=== PATIENT | male | born 1970 | race Caucasian/White ===

== ENCOUNTER 2018-08-21 04:54 | Inpatient (IN) ==
--- NOTE | 2018-08-10 10:45 | Anesthesiology Consultation ---
Date of Service August 10, 2018 Assessment & Plan (1) Encounter for pre-operative examination: Plan: - History of glidescope intubation= Left shoulder arthroscopy = 07/25/14= Grade view 1, Glidescope #4, ETT 8.0 at [facility]. Chart Review Chart Review: Acceptable Risk for Surgery (PENDING EVALUATION OF CLINICAL/ CARDIAC STATUS AM DOS) and Patient NOT seen in Pre Admission Testing History Surgery Operation Date: 08/21/18 12:40 Proposed Procedures p Right Ankle Achilles Tendon Debridement, - Maverick Davies DO s Calcaneal Exostectomy, Excision Skylar's Deformity - Lateral Approach - Maverick Davies DO Height/Weight Height: 6 ft 5 in Weight: 204.117 kg Allergies Allergy/AdvReac Type Severity Reaction Status Date / Time Penicillins Allergy Severe ANAPHYLAXIS Verified 07/20/18 16:13 Sulfa (Sulfonamide Allergy Intermediate SWELLING Verified 07/20/18 16:13 Antibiotics) Medications Home Medications Medication Instructions Recorded Confirmed Last Taken Hydrochlorothiazide 1 tab PO QAM 07/20/18 07/20/18 Unknown bupropion HCl 300 mg PO QAM 07/20/18 07/20/18 Unknown gabapentin 300 mg PO BID 07/20/18 07/20/18 Unknown vjouxqigbbt-zwv-duhfkdufn-vitC 3 tab PO BID 07/20/18 07/20/18 Unknown [Glucosamine Complex-MSM] loratadine 10 mg PO QAM 07/20/18 07/20/18 Unknown meloxicam 15 mg PO QAM 07/20/18 07/20/18 Unknown omeprazole 20 mg PO QAM 07/20/18 07/20/18 Unknown oxybutynin chloride 10 mg PO QAM 07/20/18 07/20/18 Unknown Past Medical History Medical History History of difficult intubation Left shoulder arthroscopy = 07/25/14= Grade view 1, Glidescope #4, ETT 8.0 at [facility] Morbid obesity Anxiety GERD (gastroesophageal reflux disease) Hypertension Osteoarthritis Sleep apnea NO DEVICE "CANNOT TOLERATE CPAP" Past Family History Family History Sister Family history of diabetes mellitus Past Surgical History Surgical History History of herniorrhaphy UMBILICAL History of repair of rotator cuff LEFT X3 History of tonsillectomy History of tooth extraction WISDOM TEETH Past Anesthesia History Difficult Airway (Left shoulder arthroscopy = 07/25/14= Grade view 1, Glidescope #4, ETT 8.0 at [facility]) Social History Smoking Status: Former smoker tobacco type: cigarettes Do You Dip or Chew Tobacco: No Smoking End Date: QUIT 2016 Hx Alcohol Use: Yes (RARELY) Alcohol type: beer alcohol intake frequency: other Hx Substance Use: No Testing Electrocardiogram Date: 08/07/18 NSR at 79bpm. Possible septal infarct. TWI in lead III (NS TWA in AVF)-- prior EKG included in chart for comparison; will evaluate cardiac status AM DOS. Chest X-Ray Date: 08/07/18 Findings: + NAD Old distal right clavicular deformity. 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 Laboratory Results 08/07/18 WBC 10.49 H/H 15.3/45.9 PLATELETS 261 PT 10.1 PTT 27.8 INR 1.0 UA negative bacteria
--- NOTE | 2018-08-20 18:11 | History & Physical Report ---
Date of Service August 20, 2018 Assessment & Plan (1) Right Achilles tendinitis: Schedule a right achilles debridement through a lateral approach, Skylar' s resection, calcaneal exostectomy. All potential risks, benefits, complications, alternatives, and rehab have been discussed with the patient and he wishes to proceed. He will be scheduled for 08.21.18. (2) Skylar's deformity of right heel: (3) Exostosis of right posterior calcaneus: History of Present Illness Chief Complaint: right ankle/achilles pain Primary Care Provider: Xavier Pereira MD This is a patient with chronic right achilles tendon pain for multiple months. He had been treated conservatively but failed all conservative management. He is now being set up for surgical management. Allergies Allergy/AdvReac Type Severity Reaction Status Date / Time Penicillins Allergy Severe ANAPHYLAXIS Verified 07/20/18 16:13 Sulfa (Sulfonamide Allergy Intermediate SWELLING Verified 07/20/18 16:13 Antibiotics) Home Medications Home Medications Medication Instructions Recorded Confirmed Type Hydrochlorothiazide 1 tab PO QAM 07/20/18 07/20/18 History bupropion HCl 300 mg PO QAM 07/20/18 07/20/18 History gabapentin 300 mg PO BID 07/20/18 07/20/18 History rwprvskcmxw-vjk-edepzfepa-vitC 3 tab PO BID 07/20/18 07/20/18 History [Glucosamine Complex-MSM] loratadine 10 mg PO QAM 07/20/18 07/20/18 History meloxicam 15 mg PO QAM 07/20/18 07/20/18 History omeprazole 20 mg PO QAM 07/20/18 07/20/18 History oxybutynin chloride 10 mg PO QAM 07/20/18 07/20/18 History Past Med/Surg History Medical History History of difficult intubation Left shoulder arthroscopy = 07/25/14= Grade view 1, Glidescope #4, ETT 8.0 at [facility] Anxiety GERD (gastroesophageal reflux disease) Hypertension Morbid obesity Osteoarthritis Sleep apnea NO DEVICE "CANNOT TOLERATE CPAP" Surgical History History of herniorrhaphy UMBILICAL History of repair of rotator cuff LEFT X3 History of tonsillectomy History of tooth extraction WISDOM TEETH Family History Sister Family history of diabetes mellitus Social History Current Living Situation: Alone Feels Safe at Home: Yes Smoking Status: Former smoker Tobacco Type: cigarettes Second Hand Exposure: No Hx Alcohol Use: Yes (RARELY) Alcohol type: beer Alcohol Intake Frequency: other Hx Substance Use: No Beliefs That Will Affect Care: None Preferred Language: Cymraes Communication Ability: Effective Physical Exam 2 Constitutional: well developed and well nourished; no acute distress ENMT: external ear and nose normal, oropharynx normal Neck: trachea midline, no thyromegaly Respiratory: normal respiratory effort, lungs clear to auscultation Cardiovascular: Rate/Rhythm: regular rate and regular rhythm Heart Sounds: normal S1 and normal S2 Gastrointestinal (Abdomen): normal bowel sounds, soft, nontender, no hepatosplenomegaly Musculoskeletal: Ankle: no deformity, no skin erythema and no ecchymosis Right ankle: Swelling at the posterior aspect of the achilles. Tender at the lateral aspect of the achilles insertion and the achilles. Painful PROM. Skin: no rashes, warm and dry Psychiatric: A+Ox3, euthymic affect Lymphatic: no cervical or axillary lymphadenopathy
[2018-08-21] MEDS ORDERED: LR 15ML/HR IV SCH (06:00)
[2018-08-21] MEDS ORDERED: ROPIVACAINE 0.5% 5 MG/ML 30 ML VIAL ONE (06:23)
[2018-08-21] MEDS ORDERED: BUPIVACAINE 0.25% 30 ML VIAL ONE (06:23)
[2018-08-21] MEDS ORDERED: ePHEDrine sulfate 50 MG/ML AMP IV PRN (06:36)
[2018-08-21] MEDS ORDERED: ONDANSETRON INJ 2 MG/ML 2 ML VIAL IV PRN ×2 (06:36→10:47)
[2018-08-21] MEDS ORDERED: PHENYLEPHRINE 100MCG/ML 5ML SYR IV PRN (06:36)
[2018-08-21] MEDS ORDERED: fentaNYL citrate 100 MCG/2 ML VIAL IV PRN (06:36)
[2018-08-21] MEDS ORDERED: HYDROmorphone INJ 1 MG/ML SYRINGE IV PRN (06:36)
[2018-08-21] MEDS ORDERED: ATROPINE SULFATE 0.1 MG/ML 5ML SYR IV PRN (06:36)
[2018-08-21] MEDS ORDERED: PROMETHAZINE HCL 12.5 MG in SODIUM CHLORIDE 0.9% 50 ML IV PRN (06:36)
[2018-08-21] MEDS ORDERED: LIDOCAINE HCL 2% 2 ML VIAL/AMP(20MG/ML) INFIL ONE (06:42)
[2018-08-21] MEDS ORDERED: PROPOFOL IV EMULSION 10 MG/ML 20 ML VIAL IV ONE ×2 (06:42→10:06)
[2018-08-21] MEDS ORDERED: fentaNYL citrate 100 MCG/2 ML VIAL ONE (06:42)
[2018-08-21] MEDS ORDERED: MIDAZOLAM HCL 1 MG/ML 2ML VIAL ONE ×2 (06:42→10:06)
[2018-08-21] MEDS ORDERED: ONDANSETRON INJ 2 MG/ML 2 ML VIAL ONE (06:42)
[2018-08-21] MEDS ORDERED: DEXAMETHASONE SOD INJ 4 MG/ML VIAL ONE (06:42)
[2018-08-21] MEDS ORDERED: BUPIVACAINE 0.5 % 5 MG/1 ML MPF 30ML VIAL ONE (06:59)
[2018-08-21] MEDS ORDERED: BACITRACIN INJ 50,000 UNIT VIAL ONE (06:59)
--- NOTE | 2018-08-21 07:48 | History & Physical Bridge Note ---
Date of Service August 21, 2018 History & Physical Bridge Note I have examined the patient, reviewed the History & Physical and in the interval since the performance of the History & Physical I have noted the following changes of clinical significance: no changes noted
[2018-08-21] MEDS ORDERED: CLINDAMYCIN 900 MG in DEXTROSE 5% 100 ML IV ONE (07:50)
--- NOTE | 2018-08-21 10:25 | Post Operative Brief Note ---
Immediate Post Op Note v1 Date of Surgery August 21, 2018 Pre & Post Diagnosis Operation Date: 08/21/18 07:30 Pre-Op Diagnosis: Right Ankle Achilles partial tear, Skylar's Deformity, Achilles tendonosis, calcaneal extostosis Post-Op Diagnosis: Right Ankle Achilles partial tear, Skylar's Deformity, Achilles tendonosis, calcaneal extostosis Procedure Operation Date: 08/21/18 07:30 Actual Procedures p Right Ankle Achilles Tendon Debridement and repair with 4.5mm Healicoil anchors x2 and 4.5mm Footprint anchors x2 (Right) - DO capri Ivan Calcaneal Exostectomy, Excision Skylar's Deformity - Lateral Approach(Right) - Maverick Davies DO Surgeon Maverick Davies DO Drier Operator Rik Johnson PA-C Estimated Blood Loss 2 Findings Consistent with Post-Op Diagnosis Specimens Right Skylar's deformity, Achilles tendon insertion Anesthesia Type General Regional Complications none Disposition Accompanied Patient To Recovery: No Disposition: Recovery Room
[2018-08-21] MEDS ORDERED: ZOLPIDEM TARTRATE 5 MG TAB PO PRN (10:42)
[2018-08-21] MEDS ORDERED: MAGNESIUM HYDROXIDE SUSP 30 ML UDC PO PRN (10:47)
[2018-08-21] MEDS ORDERED: BISACODYL 10 MG SUPP PR PRN (10:47)
[2018-08-21] MEDS ORDERED: ALUMINUM/MAGNESIUM SUSP 30 ML UDC PO PRN (10:47)
[2018-08-21] MEDS ORDERED: SOD PHOSPHATE/SOD BIPHOSPHATE ENEMA 132 ML BTL PR PRN (10:47)
[2018-08-21] MEDS ORDERED: LABETALOL HCL IV 5 MG/ML 20ML IV ONE (11:07)
[2018-08-21] MEDS ORDERED: LABETALOL HCL IV 5 MG/ML 20ML IV PRN ×2 (11:29→11:39)
[2018-08-21] MEDS: MoRPHine SULFATE 2 MG/ML CARP IV PRN (13:17)
--- NOTE | 2018-08-21 13:26 | Anesthesiology Progress Note ---
Date of Service August 21, 2018 Anesthesia Post Procedure Vital Signs Vital Signs: Temp Pulse Pulse Resp BP BP Pulse Ox 08/21/18 13:10 79 20 148/91 H 99 08/21/18 12:38 79 17 148/97 H 93 08/21/18 12:05 36.5 C 67 20 157/98 H 100 08/21/18 11:56 36.8 C 74 16 141/96 H 99 08/21/18 11:55 75 17 98 08/21/18 11:51 73 14 140/105 H 99 08/21/18 11:50 75 19 99 08/21/18 11:46 73 16 158/94 H 100 08/21/18 11:45 78 17 100 08/21/18 11:40 81 13 137/77 99 08/21/18 11:37 79 19 100 08/21/18 11:36 77 10 L 160/96 H 100 08/21/18 11:34 77 14 151/95 H 99 08/21/18 11:31 78 17 129/81 100 08/21/18 11:30 81 18 100 08/21/18 11:27 85 18 97 08/21/18 11:26 81 17 133/101 H 98 08/21/18 11:24 80 21 159/102 H 100 08/21/18 11:21 79 18 159/103 H 100 08/21/18 11:20 84 19 100 08/21/18 11:16 81 14 136/81 100 08/21/18 11:15 78 14 100 08/21/18 11:14 80 20 142/78 H 100 08/21/18 11:11 86 20 189/128 H 100 08/21/18 11:10 83 20 100 08/21/18 11:06 87 20 196/129 H 100 08/21/18 11:05 91 H 17 99 08/21/18 11:03 87 21 178/105 H 99 08/21/18 11:00 89 21 188/108 H 100 08/21/18 10:59 88 17 160/122 H 100 08/21/18 10:56 88 19 149/118 H 100 08/21/18 10:55 85 20 99 08/21/18 10:53 84 21 161/100 H 100 08/21/18 10:50 88 20 195/107 H 100 08/21/18 10:46 88 20 169/114 H 97 08/21/18 10:45 93 H 18 100 08/21/18 10:41 35.8 C L 93 H 93 H 21 178/104 H 178/104 H 97 08/21/18 10:40 20 87 L 08/21/18 05:55 37 C 75 18 136/86 94 Notes Mental Status: alert / awake / arousable Patient Amnestic to Procedure: Yes Nausea / Vomiting: adequately controlled Pain: adequately controlled Airway Patency, RR, SpO2: stable & adequate BP & HR: stable & adequate Hydration State: stable & adequate Anesthetic Complications: no major complications apparent Notes: BP improved after 15mg of IV labetalol. Pt doing well without complaints.
[2018-08-21] MEDS: D5W AND 1/2NSS + 20MEQ KCL 20 MEQ/1,000 ML BAG IV SCH ×2 (14:07→23:12)
[2018-08-21] MEDS: ACETAMINOPHEN 500 MG TAB PO SCH ×2 (14:07→21:47)
[2018-08-21] MEDS: CLINDAMYCIN 900 MG in DEXTROSE 5% 50 ML IV SCH ×2 (15:41→23:12)
[2018-08-21] MEDS: SENNA 8.6 MG TAB PO SCH (20:30)
[2018-08-21] MEDS: GABAPENTIN 300 MG CAP PO SCH (20:30)
[2018-08-21] MEDS: DOCUSATE SODIUM 100 MG CAP PO SCH (20:30)
[2018-08-21] MEDS ORDERED: GLUCOSAMINE MSM MAGNESIUM VITC PO SCH (21:00)
[2018-08-22] MEDS: ACETAMINOPHEN 500 MG TAB PO SCH ×3 (05:30→21:22)
[2018-08-22 06:08] LABS: Basophils # (auto) 0.01 K/uL (0-0.2); Basophils % (auto) 0.1 %; Hematocrit (blood only) 45.4 % (42-52); Hemoglobin 14.4 g/dL (14.0-18.0); Immature Granulocytes # (auto) 0.06 K/uL (0.00-0.02); Immature Granulocytes % (auto) 0.3 %; Lymphocytes # (auto) 2.18 K/uL (1.2-3.4); Lymphocytes % (auto) 11.9 %; Mean Corpuscular Hgb Conc 31.7 g/dL (32-36); Mean Corpuscular Volume 88.3 fL (80-100); Mean Platelet Volume 10.9 fL (7.4-10.4); Monocytes # (auto) 1.79 K/uL (0.11-0.59); Monocytes % (auto) 9.8 %; Neutrophils # (auto) 14.21 K/uL (1.4-6.5); Neutrophils % (auto) 77.9 %; Platelet Count 255 K/uL (130-400); RDW Coefficient of Variation 13.1 % (11.5-14.5); RDW Standard Deviation 42.2 fL (36.4-46.3); Red Blood Count 5.14 M/uL (4.7-6.1); White Blood Count 18.25 K/uL (4.8-10.8)
[2018-08-22] MEDS: DOCUSATE SODIUM 100 MG CAP PO SCH ×2 (07:56→20:13)
[2018-08-22] MEDS: hydroCHLOROthiazide 25 MG TAB PO SCH (07:57)
[2018-08-22] MEDS: GABAPENTIN 300 MG CAP PO SCH ×2 (07:57→20:14)
[2018-08-22] MEDS: LORATADINE 10 MG TAB PO SCH (07:57)
[2018-08-22] MEDS: OXYBUTYNIN CHLORIDE XL 5 MG TABCR PO SCH (07:57)
[2018-08-22] MEDS: PANTOprazole 40 MG TAB PO SCH (07:57)
[2018-08-22] MEDS: MULTIVITAMIN TAB PO SCH (07:58)
[2018-08-22] MEDS: ASPIRIN 81 MG ECTAB PO SCH ×2 (07:58→20:13)
[2018-08-22] MEDS: BuPROPion XL 300 MG TABCR PO SCH (07:59)
[2018-08-22] MEDS ORDERED: NON-FORMULARY MEDICATION (Hydrochlorothiazide 1 TAB) PO SCH (09:00)
[2018-08-22] MEDS: OXYCODONE HCL IR 5 MG TAB (IMMEDIATE RELEASE) PO PRN ×3 (09:25→19:01)
[2018-08-22] MEDS: D5W AND 1/2NSS + 20MEQ KCL 20 MEQ/1,000 ML BAG IV SCH ×2 (09:25→18:46)
--- NOTE | 2018-08-22 11:10 | Orthopedic Progress Note ---
Date of Service August 22, 2018 Assessment & Plan (1) Right Achilles tendinitis: POD #1 s/p right achilles debridement, Skylar's resection, calcaneal exostectomy. Pain control ASA 81 mg BID x 30 days for DVT prophylaxis. NWB RLE at all times. Patient lives alone so plan for a SNF upon d/c. If approval and accepted today, plan for d/c. Subjective No complaints with the right ankle. Still feels the block is working. Having some sensation in the toes. No pain at the achilles or heel area. No CP, SOB, LH. Physical Exam 2 Vital Signs (Past 24 Hours): Last Vital Signs Temp 36.5 C 08/22/18 07:51 Pulse 69 08/22/18 07:51 Resp 18 08/22/18 07:51 BP 112/77 08/22/18 07:51 Pulse Ox 94 08/22/18 07:51 Constitutional: WD/WN, vitals as above Musculoskeletal: Right ankle: splint in place. Toes are mobile. Sensation intact to light touch. Cap refill < 2 seconds.
[2018-08-22] MEDS: MoRPHine SULFATE 2 MG/ML CARP IV PRN ×2 (19:56→21:51)
[2018-08-22] MEDS: SENNA 8.6 MG TAB PO SCH (20:15)
[2018-08-23] MEDS: OXYCODONE HCL IR 5 MG TAB (IMMEDIATE RELEASE) PO PRN ×3 (02:19→10:28)
[2018-08-23] MEDS: D5W AND 1/2NSS + 20MEQ KCL 20 MEQ/1,000 ML BAG IV SCH (04:48)
[2018-08-23] MEDS: ACETAMINOPHEN 500 MG TAB PO SCH (05:34)
--- NOTE | 2018-08-23 07:49 | Orthopedic Progress Note ---
Date of Service August 23, 2018 Assessment & Plan (1) Right Achilles tendinitis: POD #2 s/p right achilles debridement, Skylar's resection, calcaneal exostectomy. Pain control ASA 81 mg BID x 30 days for DVT prophylaxis. NWB RLE at all times. Patient lives alone so plan for a rehab vs SNF upon d/c. If approval and accepted today, plan for d/c. Subjective States the block has worn off and he is having more pain in his heel. States the entire heel is throbbing. He is keeping it elevated with pillows at the lower leg to avoid any pressure on the heel. Overall, the pain is controlled. Denies CP, SOB, LH. Physical Exam 2 Vital Signs (Past 24 Hours): Last Vital Signs Temp 36.6 C 08/23/18 06:29 Pulse 73 08/23/18 06:29 Resp 18 08/23/18 06:29 BP 102/67 08/23/18 06:29 Pulse Ox 94 08/23/18 06:29 Constitutional: WD/WN, vitals as above well developed and well nourished; no acute distress Resting comfortably sitting in bed. Eating breakfast. ENMT: external ear and nose normal, oropharynx normal Neck: trachea midline, no thyromegaly Respiratory: normal respiratory effort, lungs clear to auscultation Cardiovascular: Rate/Rhythm: regular rate and regular rhythm Heart Sounds: normal S1 and normal S2 Gastrointestinal (Abdomen): normal bowel sounds, soft, nontender, no hepatosplenomegaly Musculoskeletal: Right ankle: splint in place. Toes are mobile. Good sensation in the toes to light touch. Cap refill <2 seconds. Skin: no rashes, warm and dry Psychiatric: A+Ox3, euthymic affect Lymphatic: no cervical or axillary lymphadenopathy
[2018-08-23] MEDS: PANTOprazole 40 MG TAB PO SCH (08:00)
[2018-08-23] MEDS: OXYBUTYNIN CHLORIDE XL 5 MG TABCR PO SCH (08:00)
[2018-08-23] MEDS: GABAPENTIN 300 MG CAP PO SCH (08:00)
[2018-08-23] MEDS: LORATADINE 10 MG TAB PO SCH (08:00)
[2018-08-23] MEDS: MULTIVITAMIN TAB PO SCH (08:00)
[2018-08-23] MEDS: BuPROPion XL 300 MG TABCR PO SCH (08:00)
[2018-08-23] MEDS: ASPIRIN 81 MG ECTAB PO SCH (08:01)
[2018-08-23] MEDS: DOCUSATE SODIUM 100 MG CAP PO SCH (08:01)
[2018-08-23] MEDS: hydroCHLOROthiazide 25 MG TAB PO SCH (08:01)
--- NOTE | 2018-08-24 07:15 | Operative Report ---
DATE OF OPERATION: 08/21/2018 PREOPERATIVE DIAGNOSES: 1. Right Skylar's deformity. 2. Achilles tendon partial tear at its insertion. 3. Calcaneal exostosis posteriorly. 4. Achilles tendonopathy. POSTOPERATIVE DIAGNOSES: 1. Right Skylar's deformity. 2. Achilles tendon partial tear at its insertion. 3. Calcaneal exostosis posteriorly. 4. Achilles tendonopathy. PROCEDURE: 1. Right foot resection, Skylar's deformity. 2. Debridement Achilles tendon insertion with repair using a Serrano and Nephew 4.5 mm Healicoil anchors x2, and 4.5 mm Serrano and Nephew footprint anchors x2. 3. Calcaneal exostectomy posterior inferior calcaneus. SURGEON: Maverick Davies DO CUSTODY OFFICER: Rik Johnson PA-C who was present for patient positioning, sterile prep and drape, management of retractors and instruments. He was present through the critical portions of the case including wound closure, application of sterile dressing and transport of the patient to recovery. ANESTHESIA: General endotracheal tube with popliteal block. SPECIMENS: Achilles tendon and Skylar deformity. DRAINS: None. COMPLICATIONS: None. BLOOD LOSS: 4 mL PERTINENT HISTORY: This is a 48-year-old gentleman who has had severe chronic and worsening right posterior heel and Achilles pain for over a year. He attempted and failed conservative management including shoe modification, activity modification, anti-inflammatories, rest, topical and oral anti-inflammatories, physician-directed home exercises, use of an assistive device, and use of a brace. He had an MRI and an x-ray which demonstrated severe posterior calcaneal exostosis Achilles tendinopathy with partial tear of the Achilles insertion and a large Skylar deformity. The patient was then scheduled for surgery as indicated. All potential risks, benefits, complications, alternatives, rehab, potential for incomplete relief of symptoms and need for further surgery, DVT, PE, , persistent pain, swelling, scarring, weakness, neurovascular injury, wound complications, hardware failure, nonunion, malunion were discussed with the patient. The patient decided to proceed with the procedure as indicated. DESCRIPTION OF PROCEDURE: The patient had a popliteal block in the preop holding area. He was taken to the operative suite, placed supine on the operating table and after review of the consent and identification of proper operative site, the patient was then anesthetized and endotracheal tube was placed. Tourniquet was placed high on the right thigh over cast padding. The patient then rolled prone over bolsters and all bony prominences were properly padded and protected. A #15 blade scalpel was used to make an incision along the lateral border of the right Achilles tendon adjacent to its insertion. The incision was deepened through subcutaneous tissue. Meticulous hemostasis was achieved with electrocautery. Full thickness skin flaps developed. The cutaneous nerves were retracted and protected when possible. Marisa rakes were placed in the incision. Adan's fascia was then incised along the skin incision followed by identification of paratenon of the Achilles tendon, which was then incised with #15 blade scalpel, elevated both medially and laterally exposing the Achilles tendon and its insertion. Next, the retrocalcaneal bursa was then entered with a #15 blade scalpel sharply and the hypertrophic and inflamed Kager's fat pad was then sharply excised. There was noted to be hyperemia and capillary infiltration indicating chronic inflammation. This was excised and passed off. Next, there was noted to be Achilles tendon fibers on the anterior aspect of the Achilles, which had torn from the insertion under the calcaneus. The Achilles was then carefully debrided with a #15 blade scalpel. Next, the Achilles then elevated from the lateral aspect of the calcaneus. There was noted to be a large Skylar deformity. Marcos retractor was placed to protect the Achilles tendon and the Skylar's deformity was then resected using a sagittal saw, then removed with a rongeur and then passed off as specimen. Next, the superior aspect of the calcaneus was then smoothed and contoured with a rasp. This was irrigated copiously with sterile normal saline. Next, the Achilles tendon was then sharply elevated from the lateral posterior aspect of the calcaneus noted to have a very large posterior and inferior calcaneal exostosis. This exostosis was then resected using a rongeur. Next, the calcaneus was then smoothed and contoured using a rasp. Copious amounts of sterile normal saline were used to irrigate the incision until clear. Once this was completed and the damaged portion of the Achilles tendon had been completely debrided, next, two 4.5 mm Healicoil anchors were placed at the margin of the superior aspect of the calcaneus and the Achilles tendon. These sutures were then woven through the tendon using Dru-Marc stitch to secure the tendon into the bone. Next two 4.5 mm footprint anchors were placed slightly distal to the Achilles insertion and then a crossing pattern was then performed locking the remainder of the Achilles tendon insertion in place over the bone. Next, a free needle was then used to pass UltraTape back through the tendon and a suture knot was placed on the anterior aspect of the Achilles to prevent any impingement from the knot stack to further secure the tendon insertion. Next, the wound was irrigated once again with sterile normal saline and the fascia was closed with the lateral aspect of the Achilles tendon with a #1 Vicryl. The peritenon was then closed using a running 3-0 Vicryl. The dermis was closed using buried interrupted 3-0 Vicryl and the skin was closed using 4-0 nylon. Next, a sterile compressive dressing was applied overwrapped with a bulky Mahamed Marcus, plaster splint was placed in slight gravity equinus. The tourniquet was released, the patient was awakened after he was rolled supine and then transferred to recovery in stable condition. Toes were pink and warm. Cap refill is brisk. I attest to the content of the Intraoperative Record and any orders documented therein. Any exception s are noted below.
--- NOTE | 2018-08-24 10:54 | Discharge Summary ---
Date of Service September 04, 2018 Admission HPI Per Admitting Provider This is a patient with chronic right achilles tendon pain for multiple months. He had been treated conservatively but failed all conservative management. He is now being set up for surgical management. Principal Diagnosis right achilles tendinitis Discharge Exam Constitutional WD/WN, vitals as above well developed and well nourished; no acute distress ENMT external ear and nose normal, oropharynx normal Neck trachea midline, no thyromegaly Respiratory normal respiratory effort, lungs clear to auscultation Cardiovascular Rate/Rhythm: regular rate and regular rhythm Heart Sounds: normal S1 and normal S2 Gastrointestinal (Abdomen) normal bowel sounds, soft, nontender, no hepatosplenomegaly Musculoskeletal Ankle: no deformity, no skin erythema and no ecchymosis Right ankle: splint in place. Toes are mobile. Sensation to light touch intact. Skin no rashes, warm and dry Psychiatric A+Ox3, euthymic affect Lymphatic no cervical or axillary lymphadenopathy Discharge Data Allergies Allergy/AdvReac Type Severity Reaction Status Date / Time Penicillins Allergy Severe ANAPHYLAXIS Verified 08/25/18 15:03 Sulfa (Sulfonamide Allergy Intermediate SWELLING Verified 08/25/18 15:03 Antibiotics) Consultations 08/21/18 10:47 Consult Case Management - Discharge Planning Routine 08/21/18 15:12 Consult Case Management - Discharge Planning Routine Procedures Performed Operation Date: 08/21/18 07:30 Actual Procedures p Right Ankle Achilles Tendon Debridement(Right) - Maverick Campoverde DO s Calcaneal Exostectomy, Excision Skylar's Deformity - Lateral Approach(Right) - Maverick Campoverde DO Ordered Studies 08/21/18 05:00 US - OR guided needle placemen Routine Hospital Course (1) Right Achilles tendinitis: POD #2 s/p right achilles debridement, Skylar's resection, calcaneal exostectomy. Pain control ASA 81 mg BID x 30 days for DVT prophylaxis. NWB RLE at all times. Patient lives alone so plan for a rehab vs SNF upon d/c. If approval and accepted today, plan for d/c. Patient was discharge on POD #2 to N. Total Time Total Time Spent Total Time Spent (In Minutes): 1 hour Discharge Plan Discharge Items Patient Disposition: Transfer Inpatient Rehab Fac Reason For Visit: Right Ankle Achilles Rupture; Skylar's Deformity Discharge Diagnosis: right achilles tendon tear Discharge Goals: Decrease discomfort and Improve function Activity: Per 'Additional Instructions' section Non-emergency contact: Surgeon Call non-emergency contact if: your symptoms worsen, your pain is not controlled , your pain is worsening and your temperature is above 101.5 Follow-up/Referrals: Rob Cortez M.D. [Primary Care Provider] - Diet: Regular Addtl Provider Instructions: ACTIVITY RECOMMENDATIONS: Limitations: No weight bearing to affected limb at all times. SPECIAL CARE INSTRUCTIONS: * Take Aspirin 81 mg every 12 hours for 30 days after surgery for blood clot prophylaxis. * Some drainage onto the dressing is normal and is no cause for alarm. * Some swelling is natural especially after walking. * When resting, keep your foot elevated above the level of your heart. * Call [facility] if you notice: -Increased drainage -Fever over 101 degrees F -Severe constant pain BANDAGE: * Leave bandage/cast in place unless otherwise directed. * Keep bandage/cast dry at all times. FOLLOW UP VISIT WITH DR. CAMPOVERDE If appointment is not already scheduled: Please call [facility] after you get home today to schedule a follow-up appointment for [address] Campoverde at . Prescriptions: New oxycodone-acetaminophen [Percocet] 5-325 mg tablet 1 tab PO Q4H MDD 6 PRN (Reason: pain) Qty: 30 RF: 0 Continue meloxicam 15 mg Tablet 15 mg PO QAM RF: 0 omeprazole 20 mg Capsule,Delayed Release(Dr/Ec) 20 mg PO QAM RF: 0 [id number]-rfj-qzuahifmb-vitC [Glucosamine Complex-MSM] Capsule 3 tab PO BID RF: 0 bupropion HCl 300 mg Tablet Extended Release 24 Hr 300 mg PO QAM RF: 0 gabapentin 300 mg Capsule 300 mg PO BID RF: 0 oxybutynin chloride 10 mg Tablet Extended Release 24hr 10 mg PO QAM RF: 0 No Action hydrochlorothiazide 12.5 mg capsule 12.5 mg PO QAM RF: 0 loratadine 10 mg Tablet 10 mg PO QAM RF: 0 enoxaparin [Lovenox] 120 mg/0.8 mL Syringe SUBCUT QAM RF: 0 doxycycline hyclate 100 mg capsule 100 mg PO BID 14 Days Qty: 28 RF: 0 oxycodone 5 mg capsule 5 mg PO Q6H PRN (Reason: pain) Qty: 15 RF: 0 Visit Report Forms: [employer] [facility] Stand-Alone Forms: [facility] [employer], Opioid Pain [facility] Discharge Orders: Discharge Order (Routine); Ordered 08/23/18 Ordered By: Rik Johnson Skilled Items Patient informed of condition?: Yes DNR: No Discharge Level of Care: Acute rehab Communicable Disease: No Discharge Prognosis: Stable Admission Data Admit Date/Time: 08/21/18 12:20 Attending Provider: Maverick Campoverde Admit Provider: Maverick Campoverde Primary Care Provider: Rob Cortez Service: Surgical Services Other DC Date/Time DO NOT enter until pt leaves facility: 08/23/18 13:51
== END 2018-08-23 13:51 | DRG 501 ==
LOC: ASU 04:54 → 3E 12:20